=== PATIENT | female | born 1970 | race Caucasian/White ===

== ENCOUNTER 2021-09-18 12:07 | Outpatient (REF) | payer OTHER, SELFPAY ==
[2021-09-18 14:41] LABS: Anion Gap 12 (12-20); Blood Urea Nitrogen 5 mg/dL (9-16); Calcium 9.3 mg/dL (8.4-10.2); Carbon Dioxide 31 mmol/L (22-29); Chloride 101 mmol/L (96-108); Estimated Glomerular Filt Rate > 60; Glucose Random 62 mg/dL (60-115); Potassium 4.2 mmol/L (3.3-5.1); Sodium 140 mmol/L (135-145)
== END 2021-09-18 12:08 | disposition home or self-care (01) ==
LOC: HO.WFDLDS 12:07
PROVIDERS: Visit Provider Hospitalist
DX: I10 Essential (primary) hypertension (principal)
CPT/HCPCS: 36415; 80048

== ENCOUNTER → 2022-06-05 09:37 | Outpatient (BNVA) | payer OTHER, SELFPAY | PROVIDERS: Visit Provider Nurse Practitioner Psychiatric/Mental Health | DX: F11.20 Opioid dependence, uncomplicated (principal); F10.20 Alcohol dependence, uncomplicated; Z51.81 Encounter for therapeutic drug level monitoring; Z79.899 Other long term (current) drug therapy | CPT/HCPCS: 80305; 99212 ==

== ENCOUNTER → 2022-06-11 09:48 | Outpatient (BNVA) | payer OTHER, SELFPAY | PROVIDERS: Visit Provider Nurse Practitioner Psychiatric/Mental Health | DX: F10.20 Alcohol dependence, uncomplicated (principal); F11.20 Opioid dependence, uncomplicated | CPT/HCPCS: 80305; 99212 ==

== ENCOUNTER → 2022-06-23 09:40 | Outpatient (BNVA) | payer OTHER, SELFPAY | PROVIDERS: PCP Family Medicine; Visit Provider Nurse Practitioner Psychiatric/Mental Health | DX: F11.90 Opioid use, unspecified, uncomplicated (principal); F10.20 Alcohol dependence, uncomplicated; Z51.81 Encounter for therapeutic drug level monitoring | CPT/HCPCS: 80305; 99212 ==

== ENCOUNTER → 2022-07-08 09:42 | Outpatient (BNVA) | payer OTHER, SELFPAY | PROVIDERS: PCP Family Medicine; Visit Provider Nurse Practitioner Psychiatric/Mental Health | DX: F10.20 Alcohol dependence, uncomplicated (principal); F11.20 Opioid dependence, uncomplicated; Z51.81 Encounter for therapeutic drug level monitoring; Z79.899 Other long term (current) drug therapy | CPT/HCPCS: 80305; 99212 ==

== ENCOUNTER → 2022-07-22 10:15 | Outpatient (BNVA) | payer OTHER, SELFPAY | PROVIDERS: PCP Family Medicine; Visit Provider Nurse Practitioner Psychiatric/Mental Health | DX: F10.20 Alcohol dependence, uncomplicated (principal); F11.90 Opioid use, unspecified, uncomplicated | CPT/HCPCS: 99212 ==

== ENCOUNTER → 2022-08-18 10:11 | Outpatient (BNVA) | payer OTHER, SELFPAY | PROVIDERS: PCP Family Medicine; Visit Provider Nurse Practitioner Psychiatric/Mental Health | DX: F11.20 Opioid dependence, uncomplicated (principal); F10.20 Alcohol dependence, uncomplicated; Z51.81 Encounter for therapeutic drug level monitoring; Z79.899 Other long term (current) drug therapy | CPT/HCPCS: 80305; 99212 ==

== ENCOUNTER → 2022-09-01 10:09 | Outpatient (BNVA) | payer OTHER, SELFPAY | PROVIDERS: PCP Family Medicine; Visit Provider Nurse Practitioner Psychiatric/Mental Health | DX: Z51.81 Encounter for therapeutic drug level monitoring (principal); F10.20 Alcohol dependence, uncomplicated; F11.20 Opioid dependence, uncomplicated | CPT/HCPCS: 80305; 99212 ==

== ENCOUNTER → 2022-09-22 11:09 | Outpatient (BNVA) | payer OTHER, SELFPAY | PROVIDERS: PCP Family Medicine; Visit Provider Nurse Practitioner Psychiatric/Mental Health | DX: F11.20 Opioid dependence, uncomplicated (principal); F10.20 Alcohol dependence, uncomplicated; Z51.81 Encounter for therapeutic drug level monitoring; Z79.899 Other long term (current) drug therapy | CPT/HCPCS: 99212 ==

== ENCOUNTER → 2022-10-21 10:47 | Outpatient (BNVA) | payer OTHER, SELFPAY | PROVIDERS: PCP Family Medicine; Visit Provider Nurse Practitioner Psychiatric/Mental Health | DX: F11.20 Opioid dependence, uncomplicated (principal); F10.20 Alcohol dependence, uncomplicated | CPT/HCPCS: 99212 ==

== ENCOUNTER → 2022-11-11 10:52 | Outpatient (BNVA) | payer OTHER, SELFPAY | PROVIDERS: PCP Family Medicine; Visit Provider Nurse Practitioner Psychiatric/Mental Health | DX: Z51.81 Encounter for therapeutic drug level monitoring (principal); F10.20 Alcohol dependence, uncomplicated | CPT/HCPCS: 80305; 99212 ==

== ENCOUNTER 2022-12-14 13:28 | Emergency (ER) | payer OTHER, SELFPAY ==
[2022-12-14 13:34] VITALS: BP 153/97; PULSE 89; RESP 16; TEMP 36.6; O2SAT 96; BMI 26.5
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
[2022-12-14] MEDS: Amoxicillin/Potassium Clav 875 MG TABLET PO (14:24)
[2022-12-14] MEDS: Diphth,Pertus(ACell),Tet Adult 0.5 ML SYRINGE IM (14:24)
[2022-12-14 14:26] LABS: MANUAL DIFF FLAG NO
[2022-12-14 14:41] LABS: Alanine Aminotransferase 27 U/L (0-31); Albumin Level 4.1 g/dL (3.5-5.0); Alkaline Phosphatase 110 U/L (39-117); Aspartate Amino Transferase 55 U/L (5-31); Bilirubin Direct 0.4 mg/dL (0.0-0.5); Bilirubin Total 1.1 mg/dL (0.0-1.0); Lipase 28 U/L (8-78); Total Protein 6.6 g/dL (6.5-8.0)
[2022-12-14 14:45] LABS: Anion Gap 17 (12-20); Blood Urea Nitrogen 6 mg/dL (9-16); Calcium 9.3 mg/dL (8.4-10.2); Carbon Dioxide 29 mmol/L (22-29); Chloride 100 mmol/L (96-108); Creatinine Clr Calc Pharmacy 81.5; Estimated Glomerular Filt Rate > 60; Glucose Random 92 mg/dL (60-115); Potassium 4.7 mmol/L (3.3-5.1); Sodium 141 mmol/L (135-145)
[2022-12-14 14:48] LABS: HCG Quantitative < 2 mIU/mL
[2022-12-14 14:51] LABS: Basophils Absolute Auto 0.1 X10*3/uL (0.0-0.2); Eosinophils Absolute Auto 0.5 X10*3/uL (0.0-0.4); Eosinophils Percent Auto 6.8 % (0-4); Hematocrit 51.7 % (37.0-47.0); Hemoglobin 17.5 g/dl (12.0-16.0); Imm Gran Abs Auto 0.01 X10*3/uL (0.00-0.03); Imm Gran Pct Auto 0.1 % (0.0-0.4); Lymphocytes Absolute Auto 1.3 X10*3/uL (1.2-4.9); Lymphocytes Percent Auto 18.9 % (20-40); Mean Corpuscular HGB Conc 33.8 g/dl (31.0-35.0); Mean Corpuscular Hemoglobin 33.4 pg (27.0-33.0); Mean Corpuscular Volume 98.7 fL (80.0-98.0); Mean Platelet Volume 10.3 fL (9.4-12.3); Monocytes Absolute Auto 0.5 X10*3/uL (0.1-1.2); Monocytes Percent Auto 6.7 % (2-11); Neutrophils Absolute Auto 4.5 x10*3/uL (2.0-8.3); Neutrophils Percent Auto 66.5 % (45-73); Platelet Count 153 X10*3/uL (160-400); Red Blood Count 5.24 X10*6/uL (4.20-5.50); Red Cell Distribution Width 12.4 % (11.0-16.0); White Blood Count 6.7 X10*3/uL (4.8-10.8)
[2022-12-15 04:24] LABS: HBS Num1 12.94 mIU/mL (0-7.99); HBc Num1 0.09 S/CO (0.00-0.79); HBsAGNum1 0.23 S/CO (0.00-0.99); HIV AB/AG Nonreactive (Nonreactive); HIV Num 1 0.05 S/CO (0.00-0.99); Hepatitis B Core Antibody Nonreactive (Nonreactive); Hepatitis B Surface Antigen Negative (Negative); ~HepC Num1 14.52 S/CO (0.00-0.79); ~Hepatitis B Surface Antibody REACTIVE (Nonreactive); ~Hepatitis C Antibody Reactive (Nonreactive)
== END 2022-12-14 14:59 | disposition home or self-care (01) ==
PROVIDERS: Physician Assistant Medical; Emergency Provider Emergency Medicine Emergency Medical Services; PCP Family Medicine
DX: S51.852A Open bite of left forearm, initial encounter (principal); W50.3XXA Accidental bite by another person, initial encounter; Y93.9 Activity, unspecified; Y92.9 Unspecified place or not applicable; Y99.9 Unspecified external cause status; Z79.899 Other long term (current) drug therapy; Z23 Encounter for immunization
CPT/HCPCS: 36415; 80048; 80076; 83690; 84702; 85025; 86704; 86706; 86803; 87340; 87389; 90471; 90715; 99283

== ENCOUNTER → 2022-12-16 11:48 | Outpatient (BNVA) | payer OTHER, SELFPAY | PROVIDERS: PCP Family Medicine; Visit Provider Nurse Practitioner Psychiatric/Mental Health | DX: F11.20 Opioid dependence, uncomplicated (principal); F10.20 Alcohol dependence, uncomplicated | CPT/HCPCS: 80305; 99212 ==

== ENCOUNTER → 2023-01-21 13:39 | Outpatient (BNVA) | payer OTHER, SELFPAY | PROVIDERS: PCP Family Medicine; Visit Provider Nurse Practitioner Psychiatric/Mental Health | DX: F11.20 Opioid dependence, uncomplicated (principal) | CPT/HCPCS: 80305 ==

== ENCOUNTER → 2023-03-02 10:14 | Outpatient (BNVA) | payer OTHER, SELFPAY | PROVIDERS: PCP Family Medicine; Visit Provider Nurse Practitioner Psychiatric/Mental Health | DX: F10.20 Alcohol dependence, uncomplicated (principal); F11.90 Opioid use, unspecified, uncomplicated; Z51.81 Encounter for therapeutic drug level monitoring; Z79.899 Other long term (current) drug therapy | CPT/HCPCS: 80305; 99212 ==

== ENCOUNTER → 2023-03-20 11:02 | Outpatient (BNVA) | payer OTHER, SELFPAY | PROVIDERS: PCP Family Medicine; Visit Provider Nurse Practitioner Psychiatric/Mental Health | DX: Z51.81 Encounter for therapeutic drug level monitoring (principal); F11.20 Opioid dependence, uncomplicated; F10.20 Alcohol dependence, uncomplicated; Z79.899 Other long term (current) drug therapy | CPT/HCPCS: 99212 ==

== ENCOUNTER → 2023-04-02 10:28 | Outpatient (BNVA) | payer OTHER, SELFPAY | PROVIDERS: PCP Family Medicine; Visit Provider Nurse Practitioner Psychiatric/Mental Health | DX: F11.20 Opioid dependence, uncomplicated (principal); F10.20 Alcohol dependence, uncomplicated | CPT/HCPCS: 99212 ==

== ENCOUNTER → 2023-04-16 10:37 | Outpatient (BNVA) | payer OTHER, SELFPAY | PROVIDERS: PCP Family Medicine; Visit Provider Nurse Practitioner Psychiatric/Mental Health | DX: Z51.81 Encounter for therapeutic drug level monitoring (principal); F11.20 Opioid dependence, uncomplicated; F10.20 Alcohol dependence, uncomplicated | CPT/HCPCS: 99212 ==

== ENCOUNTER 2023-08-27 13:52 | Outpatient (AMB) | payer OTHER, SELFPAY ==
--- NOTE | 2023-08-27 14:04 | MHC.OFFVIS ---
Intake Vital Signs 08/27/23 14:05 BP 138/88 Blood Pressure Location Rt brachial Position Sitting Respiration 18 Pulse 78 Pulse Source Pulse Oximeter Pulse Oximetry (%) 97 Oxygen Delivery Method Room Air Intake Visit Reasons: MAT visit Intake Note: Walk in pt presented for MAT visit. [employer] Required: No Allergies No Known Allergies Allergy (Verified 09/18/21 12:08) Medication List - Last Reconciled 08/27/23 by Jordyn Torres NP aspirin (Adult Low Dose Aspirin) 81 mg PO DAILY buprenorphine-naloxone 4-1 mg (Suboxone) 1 film sublingual DAILY docusate sodium 100 mg PO DAILY PRN folic acid 1 mg PO DAILY hydroxyzine HCl 50 mg (2 x 25 mg) PO BID PRN lisinopril 10 mg PO DAILY naloxone 4 mg/actuation (Narcan) 4 mg intranasal Q2M PRN thiamine HCl (vitamin B1) 100 mg PO DAILY Is last menstrual period known: No Post menopausal: No Patient : No Do you need a note to return to daycare/school/sports/work: No HPI MAT visit HPI Details Pt presents to reestablish care, has not been seen since April. Says she has a hard time reaching out for help, and that is why she does not have providers yet. States she has not used illicit substances in over a year. Drinks 5-6 nips daily in the evening, reports she drinks them to sleep, and that her sleep is poor. Has been buying suboxone strips from a friend, and would like to restart at her previous dose. Would like to stop drinking every night. Says she has tried trazodone and this has not been helpful for her. She is between PCP right now due to insurance issues and has been without her meds for 2 months. States she has been taking her 's lisinopril at the same dose she was prescribe by previous PCP. Monitors her blood pressures at home. Review of Systems Const Reports as per HPI and Reports difficulty sleeping Physical Exam Vital Signs: Last Vital Signs Pulse 78 08/27/23 14:05 Resp 18 08/27/23 14:05 BP 138/88 08/27/23 14:05 Pulse Ox 97 08/27/23 14:05 Oxygen Delivery Method Room Air 08/27/23 14:05 Const General: no acute distress, alert and awake Nutritional Appearance: thin Orientation/consciousness: patient oriented x3 Resp Effort & Inspection: normal respiratory effort Neuro General: patient oriented x3 Psych Appearance: grossly normal Assessment & Plan Assessment & Plan (1) Opioid use disorder: Code(s): F11.90 - Opioid use, unspecified, uncomplicated Plan Restart suboxone at previous dose. Lisinopril restarted at her previous dose as pt is looking for new PCP that accepts her insurance. Educated to continue to self-monitor blood pressures at home. Risk reduction discussed. Sleep hygiene discussed. Follow up in 2 weeks. Plan reviewed with JESUS Armijo Medications: New lisinopril 10 mg PO DAILY 30 tabs 2RF Refilled folic acid 1 mg PO DAILY 90 tabs 3RF buprenorphine-naloxone 4-1 mg (Suboxone) 1 film sublingual DAILY 14 ea 0RF thiamine HCl (vitamin B1) 100 mg PO DAILY 30 tabs 3RF Coding Level of Care Code Est Pt Level 4 (05180) Diagnoses Opioid use disorder F11.90
[2023-08-27 14:05] VITALS: BP 138/88; PULSE 78; RESP 18; O2SAT 97
--- NOTE | 2023-08-27 14:10 | AM.OFFVISNUR ---
Intake Vital Signs 08/27/23 14:05 BP 138/88 Blood Pressure Location Rt brachial Position Sitting Respiration 18 Pulse 78 Pulse Source Pulse Oximeter Pulse Oximetry (%) 97 Oxygen Delivery Method Room Air Intake Visit Reasons: MAT Visit Allergies No Known Allergies Allergy (Verified 09/18/21 12:08) Medication List - Last Reconciled 08/27/23 by Jordyn Torres NP aspirin (Adult Low Dose Aspirin) 81 mg PO DAILY buprenorphine-naloxone 4-1 mg (Suboxone) 1 film sublingual DAILY docusate sodium 100 mg PO DAILY PRN folic acid 1 mg PO DAILY hydroxyzine HCl 50 mg (2 x 25 mg) PO BID PRN lisinopril 10 mg PO DAILY naloxone 4 mg/actuation (Narcan) 4 mg intranasal Q2M PRN thiamine HCl (vitamin B1) 100 mg PO DAILY Coding
== END 2023-08-27 14:57 | disposition home or self-care (01) ==
PROVIDERS: PCP Family Medicine; Visit Provider Nurse Practitioner Psychiatric/Mental Health
DX: F11.90 Opioid use, unspecified, uncomplicated (principal)
CPT/HCPCS: 99214

== ENCOUNTER → 2023-08-27 13:52 | Outpatient (BNVA) | payer OTHER, SELFPAY | PROVIDERS: PCP Family Medicine; Visit Provider Nurse Practitioner Psychiatric/Mental Health | DX: F11.20 Opioid dependence, uncomplicated (principal) | CPT/HCPCS: 99212 ==

== ENCOUNTER 2023-09-17 11:06 | Outpatient (AMB) | payer OTHER, SELFPAY ==
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
[2023-09-17 12:31] VITALS: BP 138/86; PULSE 92; O2SAT 93
== END 2023-09-17 11:58 | disposition home or self-care (01) ==
PROVIDERS: PCP Family Medicine; Visit Provider Nurse Practitioner Psychiatric/Mental Health
DX: F11.90 Opioid use, unspecified, uncomplicated (principal); K29.70 Gastritis, unspecified, without bleeding
CPT/HCPCS: 99214

== ENCOUNTER → 2023-09-17 11:06 | Outpatient (BNVA) | payer OTHER, SELFPAY | PROVIDERS: PCP Family Medicine; Visit Provider Nurse Practitioner Psychiatric/Mental Health | DX: F11.20 Opioid dependence, uncomplicated (principal); K29.70 Gastritis, unspecified, without bleeding | CPT/HCPCS: 99212 ==

== ENCOUNTER 2023-10-08 09:34 | Emergency (ER) | payer OTHER, SELFPAY ==
[2023-10-08 09:58] VITALS: BP 128/83; PULSE 95; RESP 20; TEMP 36.4; O2SAT 94; BMI 25.6
[2023-10-08 10:39] LABS: MANUAL DIFF FLAG NO
[2023-10-08 10:43] LABS: Basophils Absolute Auto 0.2 X10*3/uL (0.0-0.2); Eosinophils Absolute Auto 0.4 X10*3/uL (0.0-0.4); Eosinophils Percent Auto 5.4 % (0-4); Hematocrit 46.9 % (37.0-47.0); Imm Gran Abs Auto 0.02 X10*3/uL (0.00-0.03); Imm Gran Pct Auto 0.3 % (0.0-0.4); Lymphocytes Absolute Auto 1.4 X10*3/uL (1.2-4.9); Lymphocytes Percent Auto 17.4 % (20-40); Mean Corpuscular HGB Conc 34.1 g/dl (31.0-35.0); Mean Corpuscular Hemoglobin 33.3 pg (27.0-33.0); Mean Corpuscular Volume 97.5 fL (80.0-98.0); Mean Platelet Volume 9.9 fL (9.4-12.3); Monocytes Absolute Auto 0.7 X10*3/uL (0.1-1.2); Monocytes Percent Auto 8.5 % (2-11); Neutrophils Absolute Auto 5.3 x10*3/uL (2.0-8.3); Neutrophils Percent Auto 66.4 % (45-73); Platelet Count 169 X10*3/uL (160-400); Red Blood Count 4.81 X10*6/uL (4.20-5.50); Red Cell Distribution Width 12.1 % (11.0-16.0)
[2023-10-08 10:56] LABS: Alanine Aminotransferase 35 U/L (0-31); Albumin Level 3.9 g/dL (3.5-5.0); Alkaline Phosphatase 100 U/L (39-117); Anion Gap 12 (12-20); Aspartate Amino Transferase 76 U/L (5-31); Bilirubin Direct 0.8 mg/dL (0.0-0.5); Bilirubin Total 1.3 mg/dL (0.0-1.0); Blood Urea Nitrogen 6 mg/dL (9-16); Calcium 9.4 mg/dL (8.4-10.2); Carbon Dioxide 32 mmol/L (22-29); Chloride 101 mmol/L (96-108); Creatinine Clr Calc Pharmacy 81.6; Estimated Glomerular Filt Rate > 60; Glucose Random 99 mg/dL (60-115); Lipase 11 U/L (8-78); Potassium 3.8 mmol/L (3.3-5.1); Sodium 141 mmol/L (135-145); Total Protein 6.8 g/dL (6.5-8.0)
--- NOTE | 2023-10-08 13:05 | ED_ITS ---
HPI - Abdominal Pain General Chief Complaint: Abdominal Pain Stated Complaint: Abd pain Related Data Previous Rx's Medication Instructions Recorded aspirin 81 mg tablet,delayed 81 mg PO DAILY #30 tabs 09/18/21 release (Adult Low Dose Aspirin) naloxone 4 mg/actuation nasal 4 mg intranasal Q2M PRN opioid 06/05/22 spray (Narcan) overdose #2 ea docusate sodium 100 mg capsule 100 mg PO DAILY PRN constipation 10/16/22 #30 caps hydroxyzine HCl 25 mg tablet 50 mg (2 x 25 mg) PO BID PRN 03/20/23 anxiety #60 tabs folic acid 1 mg tablet 1 mg PO DAILY #90 tabs 08/27/23 lisinopril 10 mg tablet 10 mg PO DAILY #30 tabs 08/27/23 thiamine HCl (vitamin B1) 100 mg 100 mg PO DAILY #30 tabs 08/27/23 tablet ondansetron 4 mg disintegrating 4 mg PO Q8H PRN nausea and 09/17/23 tablet vomiting 7 days #21 tabs sucralfate 100 mg/mL oral 10 ml PO QIDACHS 7 days #1,000 mL 09/17/23 suspension buprenorphine 4 mg-naloxone 1 mg 1 film sublingual DAILY #14 ea 10/08/23 sublingual film (Suboxone) Allergies Allergy/AdvReac Type Severity Reaction Status Date / Time No Known Allergies Allergy Verified 09/18/21 12:08 Physical Exam ED Vital Signs: Vital Signs - 24 hr 10/08/23 09:58 Temperature 97.5 F Pulse Rate 95 Respiratory Rate 20 Blood Pressure 128/83 Pulse Oximetry 94 Oxygen Delivery Method Room Air BMI result Body Mass Index 25.6 Course Course Course Narrative: This is an RME: Additional HPI, ROS, PE not included below will be deferred to primary provider. This is a 53-year-old female, the history of hypertension, presenting to the emergency department with complaints abdominal pain. She states that she drinks 6-8 shots per day. At reports that she vomited today. Last drink was this morning. Patient reporting that she does not want to stay in the emergency room for further imaging as she feels like she is going through opiate withdrawal and she has an appointment. Discussed with her that she should stay however patient would like to leave. Plan: Labs, UA, further ER evaluation needed Medical Decision Making Lab Data 10/08/23 10:36 10/08/23 10:36 Labs: Lab Results 10/08/23 Range/Units 10:36 WBC 8.0 (4.8-10.8) X10*3/uL RBC 4.81 (4.20-5.50) X10*6/uL Hgb 16.0 (12.0-16.0) g/dl Hct 46.9 (37.0-47.0) % MCV 97.5 (80.0-98.0) fL MCH 33.3 H (27.0-33.0) pg MCHC 34.1 (31.0-35.0) g/dl RDW 12.1 (11.0-16.0) % Plt Count 169 (160-400) X10*3/uL MPV 9.9 (9.4-12.3) fL Immature Gran % (Auto) 0.3 (0.0-0.4) % Neut % (Auto) 66.4 (45-73) % Lymph % (Auto) 17.4 L (20-40) % [place] % (Auto) 8.5 (2-11) % Eos % (Auto) 5.4 H (0-4) % Baso % (Auto) 2.0 (0-2) % Lymph # (Auto) 1.4 (1.2-4.9) X10*3/uL [place] # (Auto) 0.7 (0.1-1.2) X10*3/uL Eos # (Auto) 0.4 (0.0-0.4) X10*3/uL Baso # (Auto) 0.2 (0.0-0.2) X10*3/uL Abs Immat Gran (auto) 0.02 (0.00-0.03) X10*3/uL Absolute Neuts (auto) 5.3 (2.0-8.3) x10*3/uL Absolute Nucleated RBC 0.000 (0.0-0.012) X10*3/uL Nucleated RBC % (auto) 0.0 (0.0-0.2) /100WBC Sodium 141 (135-145) mmol/L Potassium 3.8 (3.3-5.1) mmol/L Chloride 101 (96-108) mmol/L Carbon Dioxide 32 H (22-29) mmol/L Anion Gap 12 (12-20) BUN 6 L (9-16) mg/dL Creatinine 0.69 (0.5-1.4) mg/dL Estim Creat Clear Calc 81.6 Estimated GFR > 60 Random Glucose 99 (60-115) mg/dL Calcium 9.4 (8.4-10.2) mg/dL Total Bilirubin 1.3 H (0.0-1.0) mg/dL Direct Bilirubin 0.8 H (0.0-0.5) mg/dL AST 76 H (5-31) U/L ALT 35 H (0-31) U/L Alkaline Phosphatase 100 (39-117) U/L Total Protein 6.8 (6.5-8.0) g/dL Albumin 3.9 (3.5-5.0) g/dL Lipase 11 (8-78) U/L Beta HCG, Quant < 2 mIU/mL Discharge Plan Discharge Clinical Impression: Abdominal pain Patient Disposition: Left W/O Completing Treatment Prescriptions: No Action docusate sodium 100 mg capsule 100 mg PO DAILY PRN (Reason: constipation) Qty: 30 3RF aspirin [Adult Low Dose Aspirin] 81 mg tablet,delayed release (DR/EC) 81 mg PO DAILY Qty: 30 0RF naloxone [Narcan] 4 mg/actuation spray,non-aerosol 4 mg intranasal Q2M PRN (Reason: opioid overdose) Qty: 2 0RF Rx Instructions: spray 1 dose into ONE nostril; alternate nostrils w each dose until help arrives buprenorphine-naloxone [Suboxone] 4-1 mg film 1 film sublingual DAILY Qty: 14 0RF hydroxyzine HCl 25 mg tablet 50 mg PO BID PRN (Reason: anxiety) Qty: 60 1RF folic acid 1 mg tablet 1 mg PO DAILY Qty: 90 3RF thiamine HCl (vitamin B1) 100 mg tablet 100 mg PO DAILY Qty: 30 3RF lisinopril 10 mg tablet 10 mg PO DAILY Qty: 30 2RF sucralfate 100 mg/mL suspension 10 ml PO QIDACHS 7 Days Qty: 1000 0RF ondansetron 4 mg tablet,disintegrating 4 mg PO Q8H PRN (Reason: nausea and vomiting) 7 Days Qty: 21 0RF Discharge Date/Time: 10/08/23 14:42
[2023-10-08 13:32] LABS: HCG Quantitative < 2 mIU/mL
== END 2023-10-08 14:42 | disposition left against medical advice (07) ==
PROVIDERS: Physician Assistant Medical; Emergency Provider Emergency Medicine
DX: R10.9 Unspecified abdominal pain (principal); Z53.21 Procedure and treatment not carried out due to patient leaving prior to being seen by health care provider; I10 Essential (primary) hypertension; F11.20 Opioid dependence, uncomplicated; F10.20 Alcohol dependence, uncomplicated; Y90.9 Presence of alcohol in blood, level not specified; Z79.82 Long term (current) use of aspirin; Z79.899 Other long term (current) drug therapy
CPT/HCPCS: 36415; 80048; 80076; 83690; 84702; 85025; 99281; 99283

== ENCOUNTER 2023-11-03 11:26 | Outpatient (AMB) | payer OTHER, SELFPAY ==
[2023-11-03 11:15] VITALS: BP 110/60; PULSE 115; RESP 22; O2SAT 98
--- NOTE | 2023-11-03 11:40 | A.OFFVISCC_ITS ---
Intake Vital Signs 11/03/23 11:15 BP 110/60 Blood Pressure Location Lt brachial Position Sitting Respiration 22 H Pulse 115 H Pulse Source Pulse Oximeter Pulse Oximetry (%) 98 Oxygen Delivery Method Room Air Intake Visit Reasons: MAT Visit Allergies No Known Allergies Allergy (Verified 09/18/21 12:08) Medication List - Last Reconciled 11/03/23 by Kathy Watkins CNP buprenorphine-naloxone 4-1 mg 1 film buccal BID docusate sodium 100 mg PO DAILY PRN folic acid 1 mg PO DAILY lisinopril 10 mg PO DAILY naloxone 4 mg/actuation (Narcan) 4 mg intranasal Q2M PRN sertraline 50 mg PO DAILY thiamine HCl (vitamin B1) 100 mg PO DAILY HPI MAT Visit HPI Details Patient presents for follow up Bright affect, happy to share that she has not had any alcohol in 3 weeks. [place] treatment program was helpful.Has been attending a [facility] group Patient requesting information regarding hepatitis c labs. Reporting she was treated successfully, however concerned that recent labwork showed Hepatitis C antibody. hep c labs treated. Patient requesting viral load labs be drawn. Physical Exam (takes in the evening) and feels this way in the mornings. She reports sleep has improved overall. Const Physical Exam Vital Signs: Last Vital Signs Pulse 115 H 11/03/23 11:15 Resp 22 H 11/03/23 11:15 BP 110/60 11/03/23 11:15
--- NOTE | 2023-11-03 11:40 | MHC.AM.SUB ---
Intake Vital Signs 11/03/23 11:15 BP 110/60 Blood Pressure Location Lt brachial Position Sitting Respiration 22 H Pulse 115 H Pulse Source Pulse Oximeter Pulse Oximetry (%) 98 Oxygen Delivery Method Room Air Intake Visit Reasons: MAT Visit Allergies No Known Allergies Allergy (Verified 09/18/21 12:08) Medication List - Last Reconciled 11/03/23 by Kathy Watkins CNP buprenorphine-naloxone 4-1 mg 1 film buccal BID docusate sodium 100 mg PO DAILY PRN folic acid 1 mg PO DAILY lisinopril 10 mg PO DAILY naloxone 4 mg/actuation (Narcan) 4 mg intranasal Q2M PRN sertraline 50 mg PO DAILY thiamine HCl (vitamin B1) 100 mg PO DAILY HPI MAT Visit HPI Details Patient presents for follow up Bright affect, happy to share that she has not had any alcohol in 3 weeks. [facility] treatment program was helpful.Has been attending a [employer] group Patient requesting information regarding hepatitis c labs. Reporting she was treated successfully, however concerned that recent labwork showed Hepatitis C antibody. This senior technical writer assured patient that this in expected in someone who has been treated. Patient requesting viral load labs be drawn. Recently started Sertraline 25mg, with goal to increase dose to 50mg daily. She reports she has been taking 25mg daily. Feels groggy with current dose (takes in the evening) and feels this way in the mornings. Does not wish to increase dose at this time. She reports sleep has improved overall. Review of Systems Const Reports as per HPI and Reports no additional complaints Physical Exam Vital Signs: Last Vital Signs Pulse 115 H 11/03/23 11:15 Resp 22 H 11/03/23 11:15 BP 110/60 11/03/23 11:15 Pulse Ox 98 11/03/23 11:15 Oxygen Delivery Method Room Air 11/03/23 11:15 Const General: cooperative and healthy appearing Nutritional Appearance: average body habitus Orientation/consciousness: patient oriented x3 Limitations: no limitations Neuro General: patient oriented x3 Psych Appearance: well kempt Speech and movement: Clear speech present Affect: normal affect Attitude: cooperative Thought process: Normal thought process present Thought content: Normal thought content present Insight: Fair insight present (Psych) Judgement: Good judgement present (Psych) Assessment & Plan Assessment & Plan (1) Opioid use disorder: Code(s): F11.90 - Opioid use, unspecified, uncomplicated Plan: continue suboxone at current dose (4mg BID) will order Hep C labs (2) Alcohol use disorder, moderate, dependence: Code(s): F10.20 - Alcohol dependence, uncomplicated Plan: relapse prevention discussion continue vitamins follow up 2 weeks Medications: Changed From buprenorphine-naloxone 4-[address] 1 strip/tab under (each) side of tongue 1 film buccal BID 14 ea 0RF To buprenorphine-naloxone 4-1 mg 1 film buccal BID 28 ea 0RF Refilled docusate sodium 100 mg PO DAILY PRN 30 caps 3RF constipation Coding Level of Care Code Est Pt Level 3 (78032) Diagnoses Opioid use disorder F11.90 Alcohol use disorder, moderate, dependence F10.20
== END 2023-11-03 13:08 | disposition home or self-care (01) ==
PROVIDERS: Visit Provider Nurse Practitioner Psychiatric/Mental Health
DX: F11.90 Opioid use, unspecified, uncomplicated (principal); F10.20 Alcohol dependence, uncomplicated
CPT/HCPCS: 99213

== ENCOUNTER → 2023-11-03 11:26 | Outpatient (BNVA) | payer OTHER, SELFPAY | PROVIDERS: Visit Provider Nurse Practitioner Psychiatric/Mental Health | DX: F11.20 Opioid dependence, uncomplicated (principal) | CPT/HCPCS: 99212 ==

== ENCOUNTER 2024-12-05 11:06 | Emergency (ER) | payer OTHER, SELFPAY ==
--- OUTSIDE RECORDS SUMMARY | 2024-12-05 13:26 | XMS_ITS | Clinical Summary ---
Author Organization [employer] Address [address] [place] [address] Care Team Providers [employer] Employee Name Role Phone Unavailable Primary Care Provider Unavailabl e Social History Tobacco Use Types Packs/Day Years Used Date Smoking Tobacco: Never Assessed Comments Unknown Sex and Gender Information Value Date Recorded Sex Assigned at Not on file Legal Sex Female 10:40 AM EDT Gender Identity Not on file Sexual Orientation Not on file Plan of Treatment Health Maintenance Due Date Last Done Comments CT Colonography 1969 Colonoscopy 1969 Colorectal Cancer Screening 1969 Depression Screening 1969 FIT DNA/Cologuard 1969 FIT 1969 FOBT 1969 Sigmoidoscopy 1969 Alcohol/Substance Use Screening 1981 Tobacco Screening 1981 DTaP/Tdap/Td Vaccines (1 - Tdap) 1988 Hepatitis B Vaccines (1 of 3 - 19+ 3-dose series) 1988 Pap Smear 1990 Cervical Cancer Screening 1999 HPV/Cotest 1999 Mammogram 2009 Pneumococcal Vaccine: 50+ Ye ars (1 of 1 - PCV) 2019 Zoster Vaccines (1 of 2) 2019 COVID-19 Vaccine (2023-2 5 season) 2024 Influenza Vaccine (#1) 2024 RSV Patients and Pa tients Aged 60 years or older (1 - 1-dose 75+ series) 2044 HIB Vaccines Aged Out No longer eligi ble based on patient's age to complete this topic HPV Vaccines Aged Out No longer eligi ble based on patient's age to complete this topic Hepatitis A Vaccines Aged Out No long er eligible based on patient's age to complete this topic IPV Vaccines Aged Out No longer eligi ble based on patient's age to complete this topic Meningococcal Vaccine Aged Out No andrez marilu eligible based on patient's age to complete this topic Pneumococcal Vaccine: Pediat rics (0 to 5 Years) and At-Risk Patients (6 to 49) Years) Aged Out No longer eligible b ased on patient's age to complete this topic RSV under 20 months Aged Out No longe r eligible based on patient's age to complete this topic Rotavirus Vaccines Aged Out No longer eligible based on patient's age to complete this topic
== END 2024-12-05 13:07 | disposition left against medical advice (07) ==
PROVIDERS: Emergency Provider Emergency Medicine
DX: M25.512 Pain in left shoulder (principal)

== ENCOUNTER 2025-02-01 02:05 | Emergency (ER) | payer OTHER, SELFPAY ==
--- NOTE | ~2025-02-01 | XR_ITS ---
CLINICAL HISTORY: rib pain post fall 4 view, chest and left ribs Comparison: None Findings: Acute nondisplaced left lateral 8th and 9th rib fractures. Minimal atelectasis. No consolidation, pneumothorax, or pleural effusion. Calcifications involve the tortuous aorta. Heart size is at the upper limits of normal. IMPRESSION: 1. Acute nondisplaced left lateral 8th and 9th rib fractures. 2. No pneumothorax. This document has been electronically signed by: Álvaro Grant MD on 02/01/2025 03:01:58
[2025-02-01 02:07] VITALS: BP 123/72; PULSE 87; RESP 18; TEMP 36.3; O2SAT 97; BMI 24.7
--- NOTE | 2025-02-01 03:22 | ED_ITS ---
HPI - Fall General Chief Complaint: Fall Stated Complaint: Fall Time Seen by Provider: 02/01/25 03:22 Source: patient Mode of arrival: ambulatory Limitations: no limitations History of Present Illness ED Provider: HPI Narrative: Apparently patient was walking tripped on the curb side fell landed on her left ribs earlier comes here with pain in the lower ribs increases on palpation and deep breaths no other injury Related Data Previous Rx's ?Medication ?Instructions ?Recorded naloxone 4 mg/actuation nasal 4 mg intranasal Q2M PRN opioid 06/05/22 spray (Narcan) overdose #2 ea folic acid 1 mg tablet 1 mg PO DAILY #90 tabs 08/27/23 thiamine HCl (vitamin B1) 100 mg 100 mg PO DAILY #30 tabs 08/27/23 tablet sertraline 50 mg tablet 50 mg PO DAILY #30 tabs 10/22/23 docusate sodium 100 mg capsule 100 mg PO DAILY PRN constipation 11/03/23 #30 caps lisinopril 10 mg tablet 10 mg PO DAILY #30 tabs 01/07/24 buprenorphine 4 mg-naloxone 1 mg 1 film buccal DAILY #5 ea 01/13/25 sublingual film ibuprofen 600 mg tablet 600 mg PO Q6H PRN fever or pain 02/01/25 #30 tabs Allergies Allergy/AdvReac Type Severity Reaction Status Date / Time No Known Allergies Allergy Verified 02/01/25 02:09 Review of Systems Review of Systems: Yes all other systems are reviewed and are negative [facility] Social History Social History Advance Directives: No Advance Directives Information Provided: Yes Do you have a plan to hurt others: No Plan Physical Exam Vital Signs: Vital Signs: Last Vital Signs Temp 97.3 F 02/01/25 02:07 Pulse 87 02/01/25 02:07 Resp 18 02/01/25 02:07 BP 123/72 02/01/25 02:07 Pulse Ox 97 02/01/25 02:07 O2 Del Method Room Air 02/01/25 02:07 BMI result Body Mass Index 24.7 Appearance: Alert. Oriented X3. No acute distress. Eyes: PERRLA, No Nystagmus HEENT: Pharynx normal. Oral Mucosa moist atraumatic normocephalic Neck: Normal inspection. Neck supple. CVS: Normal heart rate and rhythm. Pulses normal. Respiratory: No respiratory distress. Equal air entry bilateral, no wheezing/rales/rhonchi tenderness left lower ribs in mid axillary area Abdomen: Soft and nontender. Bowel sounds are present, no mass palpable, no CVA tenderness Skin: Skin warm and dry. Normal skin color. Normal skin turgor. Extremities: No lower extremity edema. No calf tenderness Neuro: Oriented X 3. No motor deficit. No sensory deficit.No cerebellar signs , cranial nerves II-XII intact Procedures FAST Exam FAST Exam 1: Fluid in Morison's pouch: No Fluid in Splenorenal Junction: No Fluid around bladder, Transverse view: No Fluid around bladder, Sagittal view: No Fluid in Pericardial Sac: No Gross Wall Motion Abnormality: No Study normal for this patient: No Images saved for further review: No Additional Comments: Negative fast test Medical Decision Making Medical Decision Making MDM Narrative: Patient with left 8th and 9th rib fracture without displacement bedside ultrasound was done spleen is intact no effusion in the chest x-ray will discharge patient home on pain medication Independent Interpretation I performed an independent interpretation of an: Plain X-Ray Radiology Impression Discussion of test interpretation with radiology: I have reviewed the radiologist's reading. Radiologist Impression: 1. Acute nondisplaced left lateral 8th and 9th rib fractures. 2. No pneumothorax. This document has been electronically signed by: Álvaro Grant MD on 02/01/2025 03:01:58 Discharge Plan Discharge Clinical Impression: Left rib fracture Patient Disposition: Home, Self-Care Instructions: Rib Fracture (ED) Additional Instructions: You have left 8th and 9th rib fracture which has not been displaced Take pain medication as prescribed Report to the ER if increased pain/shortness a breath any time Prescriptions: New ibuprofen 600 mg tablet 600 mg PO Q6H PRN (Reason: fever or pain) Qty: 30 0RF No Action sertraline 50 mg tablet 50 mg PO DAILY Qty: 30 0RF Rx Instructions: Take 1/2 tab x 1 weeks, then progress to full tab daily lisinopril 10 mg tablet 10 mg PO DAILY Qty: 30 2RF buprenorphine-naloxone 4-1 mg film 1 film buccal DAILY Qty: 5 0RF naloxone [Narcan] 4 mg/actuation spray,non-aerosol 4 mg intranasal Q2M PRN (Reason: opioid overdose) Qty: 2 0RF Rx Instructions: spray 1 dose into ONE nostril; alternate nostrils w each dose until help arrives docusate sodium 100 mg capsule 100 mg PO DAILY PRN (Reason: constipation) Qty: 30 3RF folic acid 1 mg tablet 1 mg PO DAILY Qty: 90 3RF thiamine HCl (vitamin B1) 100 mg tablet 100 mg PO DAILY Qty: 30 3RF Stand Alone Forms: Work/School Release Print Language: [place]
[2025-02-01] MEDS: Ketorolac Tromethamine 60 MG/2 ML VIAL IM (04:02)
[2025-02-01 04:03] VITALS: BP 123/72; PULSE 87; RESP 18; TEMP 36.3; O2SAT 97
== END 2025-02-01 04:05 | disposition home or self-care (01) ==
PROVIDERS: Emergency Provider Internal Medicine
DX: S22.32XA Fracture of one rib, left side, initial encounter for closed fracture (principal); R07.81 Pleurodynia; W01.0XXA Fall on same level from slipping, tripping and stumbling without subsequent striking against object, initial encounter; Y93.9 Activity, unspecified; Y92.9 Unspecified place or not applicable; Y99.8 Other external cause status
CPT/HCPCS: 71101; 96372; 99283; 99284; J1885

== ENCOUNTER → 2025-02-01 02:28 | Outpatient (BNV) | payer OTHER, SELFPAY | PROVIDERS: Emergency Provider Internal Medicine; Visit Provider Radiology Neuroradiology | DX: S22.42XA Multiple fractures of ribs, left side, initial encounter for closed fracture (principal) | CPT/HCPCS: 71101 ==

== ENCOUNTER → 2025-02-06 16:03 | Outpatient (BNVA) | payer OTHER, SELFPAY | PROVIDERS: Visit Provider Internal Medicine | DX: F10.20 Alcohol dependence, uncomplicated (principal); F11.90 Opioid use, unspecified, uncomplicated; Z51.81 Encounter for therapeutic drug level monitoring | CPT/HCPCS: 80307; 99212 ==

== ENCOUNTER → 2025-02-06 16:03 | Outpatient (AMB) | payer OTHER, SELFPAY ==
--- NOTE | 2025-02-06 16:27 | MHC.OFFVIS ---
Vital Signs 02/06/25 16:33 Height 5 ft 2 in Weight 131 lb BMI 24.0 Pulse 102 H Pulse Source Pulse Oximeter Pulse Oximetry (%) 95 Oxygen Delivery Method Room Air Intake Visit Reasons: mat visit Allergies No Known Allergies Allergy (Verified 02/06/25 16:34) HPI HPI mat visit: Details: She injured her ribs and did go to work and now has discomfort left rib area. She has been on 8 /2 daily and now decreased to 4/1 and has some need for increased dose with jitteriness. She has had treated Hepatititis C in past. Review of Systems Const All systems reviewed & are unremarkable except as noted in HPI and below Physical Exam Vital Signs: Last Vital Signs Pulse 102 H 02/06/25 16:33 Pulse Ox 95 02/06/25 16:33 Oxygen Delivery Method Room Air 02/06/25 16:33 BMI result Body Mass Index 24.0 Results AMB 14 Panel Urine Drug Screen Urine Marijuana (THC) Negative Last Edit by Hillary Weldon CMA on 02/06/25 16:53 Urine Cocaine Negative Last Edit by Hillary Weldon CMA on 02/06/25 16:53 Urine Morphine Negative Last Edit by Hillary Weldon CMA on 02/06/25 16:53 Urine Methamphetamine Negative Last Edit by Hillary Weldon CMA on 02/06/25 16:53 Urine Amphetamine Negative Last Edit by Hillary Weldon CMA on 02/06/25 16:53 Urine Benzodiazepine Negative Last Edit by Hillary Weldon CMA on 02/06/25 16:53 Urine Barbiturates Negative Last Edit by Hillary Weldon CMA on 02/06/25 16:53 Urine Methadone Negative Last Edit by Hillary Weldon CMA on 02/06/25 16:53 Urine Buprenorphine Positive Last Edit by Hillary Weldon CMA on 02/06/25 16:53 Urine Buprenorphine previously reported as Negative Hillary Weldon 02/06/25 16:53 Urine Tricyclic Antidepressant Negative Last Edit by Hillary Weldon CMA on 02/06/25 16:53 Urine MDMA Negative Last Edit by Hillary Weldon CMA on 02/06/25 16:53 Urine Oxycodone Negative Last Edit by Hillary Weldon CMA on 02/06/25 16:53 Urine Phencyclidine Negative Last Edit by Hillary Weldon CMA on 02/06/25 16:53 Urine Propoxyphene Negative Last Edit by Hillary Weldon CMA on 02/06/25 16:53 Results Reviewed Results Reviewed: Laboratory Last Values POC Urine Buprenorphine Positive 02/06/25 16:34 POC Urine Morphine Negative 02/06/25 16:34 POC Urine Oxycodone Negative 02/06/25 16:34 POC Urine Methadone Negative 02/06/25 16:34 POC Urine Propoxyphene Negative 02/06/25 16:34 POC Urine Barbiturates Negative 02/06/25 16:34 POC U Tricyclic Antidpr Negative 02/06/25 16:34 POC Urine PCP Negative 02/06/25 16:34 POC Ur Amphetamines Negative 02/06/25 16:34 POC Ur Methamphetamine Negative 02/06/25 16:34 POC Urine MDMA Negative 02/06/25 16:34 POC Ur Benzodiazepine Negative 02/06/25 16:34 POC Urine Cocaine Negative 02/06/25 16:34 POC Ur Marijuana (THC) Negative 02/06/25 16:34 Assessment & Plan Assessment & Plan (1) Alcohol use disorder, moderate, dependence: Comment: She took some gabapentin for rib pain but denies using alcohol Code(s): F10.20 - Alcohol dependence, uncomplicated Category: Medical Plan: Would give 8/2 one SL daily,30 with no refills. Check Hepatitis C viral load. See in one month, (2) Opioid use disorder: Code(s): F11.90 - Opioid use, unspecified, uncomplicated Category: Medical Plan: n/a Orders: Orders AMB 14 Panel Urine Drug Screen Today Z51.81 - Encounter for therapeutic drug level monitoring Medications: New buprenorphine-naloxone 8-2 mg (Suboxone) 1 film sublingual DAILY 30 ea 0RF 30 days Coding Level of Care Code Est Pt Level 3 (47331) Diagnoses Alcohol use disorder, moderate, dependence F10.20 Opioid use disorder F11.90
[2025-02-06 16:33] VITALS: PULSE 102; O2SAT 95; BMI 24.0
--- OUTSIDE RECORDS SUMMARY | 2025-02-06 18:36 | XMS_ITS | Data Portability ---
Author Organization [facility] [address] Address [address] [place] [address] Assessment No assessment recorded. Plan of Treatment Reminders Order Date Submit Date Provider Last Modified By Organization Details Last Modified Time Details Appointments None recorded. Lab None recorded. Referral None recorded. Procedures None recorded. Surgeries None recorded. Imaging None recorded. Medication Orders Aplisol 5 tub. unit/0.1 mL intradermal injection solution [address] [facility] kadeem [facility]/Pharmacy #[id number], [address] [place], [address], 4 12:22:38 Patient TargetsNo targets recorded. Patient InstructionsNo instructions recorded. Reason for Referral None Reported. Problems Name Problem SNOMED Code Status Onset Date Resolution Date Notes Provider Name and Address Organization Details Recorded Time Hypertensive disorder 63857433 Active [facility] 11:59:40 Problem Notes None recorded. Medical Equipment None Reported. Allergies No known drug allergies Medications Name Sig Start Date Stop Date Status Note LastModified by Organization Details LastModified Time cyclobenz aprine 10 mg tablet TAKE 1 TABLET BY MOUTH THREE TIMES DAILY FOR 5 DAYS NEEDED FOR SPASM. DO NOT DRIVE OR DRINK ALCOHOL WHILE TAKING THIS MEDICATI ON 09/07 completed Not Available Not Available Not Available Carafate 100 mg/mL oral suspensio n TAKE 10 ML BY MOUTH FOUR TIMES DAILY BEFORE MEALS AND BEDTIME FOR 7 DAYS 09/07 completed Not Available Not Available Not Available Aplisol 5 tub. unit/0.1 mL intraderm al injection solution Inject 0.1 mL by intrader mal route. 2023 active Billable units for PPD is one. Units are not the dose. Not Available Not Available Not Available lisinopri l 10 mg tablet TAKE 1 TABLET BY MOUTH DAILY active Not Available Not Available No t Available methylpre dnisolone 4 mg tablets in a dose pack FOLLOW PACKAGE DIRECTIO NS 09/07 completed Not Available Not Available Not Available ondansetr on 4 mg disintegr ating tablet DISSOLVE 1 TABLET ON THE TONGUE EVERY 8 HOURS FOR 7 DAYS NEEDED FOR NAUSEA OR VOMITING 09/07 completed Not Available Not Available Not Available sertralin e 50 mg tablet TAKE 1/2 A TABLET FOR 1 WEEK THEN PROGRESS TO A FULL TABLET EVERY DAY 09/07 completed Not Available Not Available Not Available naproxen 500 mg tablet TAKE 1 TABLET BY MOUTH TWICE DAILY FOR 14 DAYS WITH FOOD 09/07 completed Not Available Not Available Not Available buprenorp nicolle 4 mg-naloxo ne 1 mg sublingua l film DISSOLVE 1 FILM BETWEEN GUM AND CHEEK TWICE DAILY 09/07 completed Not Available Not Available Not Available Vitals Date Recorded Body height Body mass index (BMI) Body weight Body temperature Heart rate Oxygen saturation Oxygen saturation in Arterial blood by Pulse oximetry Systolic blood pressure Diastolic blood pressure Provider Name and Address Organization Details Last Updated DateTime 4 157.48 cm 23.2 kg/m2 03419.2 3 g 99.3 [degF] 98 /min 98 % 98 % 145 mm[Hg] 79 mm[Hg] Joana Hand PA - [facility] 4 11:52:17 Social History Question Answer Notes LastModified by Organizat ion Details LastModified Time What Is Your Level Of Alcohol Consumption? Occasional Information not available 09/07/2024 How Many Times Per Week Do You Consume Alcohol? Less Than 1 Time Per Week Information not available 09/07/2024 Are You Currently Employed? Yes Information not available 09/07/2024 Do You Or Have You Ever Used E-cigarettes Or Vape? Never Used Electronic Cigarettes Information not available 09/07/2024 Have You Had A Flu Shot This Season? No Information not available 09/07/2024 If No, Would You Like A Flu Shot Today? A/P Information not available 09/07/2024 What Is Your Relationship Status? Information not available 09/07/2024 Are You Passively Exposed To Smoke? No Information no t available 09/07/2024 Do You Or Have You Ever Used Smokeless Tobacco? Never Used Smokeless Tobacco Information not available 09/07/2024 Do You Use Any Illicit Or Recreational Drugs? No Information not available 09/07/2024 Have You Recently Traveled Abroad? No Information not available 09/07/2024 Do You Or Have You Ever Used Any Other Forms Of Tobacco Or Nicotine? Yes Information not available 09/07/2024 Sex: Unknown Functional Status None recorded. Mental Status None recorded. Family History Nothing Reported. Medical History Condition Response Gout N Cancer, liver N Thyroid disorder N Hyperthyroidism N Rheumatoid arthritis N GI bleeding N Irritable bowel syndrome N Depression N COPD N Tinnitus, unspecified ear N Pneumonia N Cancer, uterus N Mental disorder, NOS N Headaches/Migraines N Insomia N Alzheimer's disease N Anxiety Disorder N Obesity N Arthritis N Cancer N Stroke N Alcohol abuse N Liver disease N Cancer, bladder N Allergy Food/Medication N Peripheral artery disease N Oxygen dependence N Fibromyalgia N Atrial fibrillation N Tinnitus, right ear N Kidney Disease N Deep vein thrombosis DVT leg N Migraine N Disorder of circulatory system N Anxiety N Cancer, brain N Disease of pancreas N Cancer, lung N Eating disorder, unspecified N Cancer, colon N Crohn's disease N Cancer, cervical N N Cancer, breast N Cancer, skin N Coagulation defect, unspecified N Cataract N Asthma N Congestive heart failure (CHF) N Substance Abuse N Vertigo N Coronary artery disease N Pulmonary Embolism N Cancer, pancreas N Tobacco use disorder N Disease of lung N Allergic rhinitis N Joint disorder, unspecified N Menopause N Drug dependence, unspecified N Back disorder N Hypothyroidism N Disorder kidney N Sickle Cell Anemia N Cancer, ovarian N Cerrato's Palsy N Disorder of eye N Cancer, prostate N Allergy Seasonal N Drug abuse N Disorder of urinary system N Disorder of lymph system N Radiculopathy, site unspecified N Myoneural disorder, unspecified N Nervous system disorder N ADHD N High Cholesterol N Post-herpetic neuralgia N Aneurysm, cerebral N Tinnitus, left ear N Prostate hypertrophy, benign N Disorder of skin/subcutaneous N Osteoarthritis N Disorder of ear N Ovarian cysts N Parkinson's disease N Low back pain N Carpal tunnel syndrome N Disorder of muscle N Anemia N Kidney stone N Bipolar affective disorder N Leukemia, unspecified N Diabetes N Endocrine disorder N Disorder involving the immune mechanism N Seizure N Hyperlipidemia N Lymphoma N Emphysema, unspecified N Eczema N Diverticulitis N Dementia N Lupus N Seizure disorder N Reflux/GERD N Sleep Apnea N Cancer, bone N Disorder of thyroid N Cardiac arrhythmia, unspecified N Disorder of bone N Heart Disease N Liver Disorder N Disorder of brain N Hypertension Y Aneurysm, aortic N Osteoporosis N Gastroesophageal reflux (GERD) N Disease of digestive system, unspecified N Gynecological HistoryNo gynecological history recorded. Obstetrics History GPAL:G 0 P 0 0 0 0 Past Encounters Encounter ID Performer Location Encounter Start Date Encounter Closed Date Diagnosis/Indication Diagnosis SNOMED-CT Code Diagnosis ICD10 Code Diagnosis Note [id number] [address] [facility] [address] 07/13/2019 18:07:23 07/13/2019 18:32:27 [id number] [address] [facility] [address] 06/21/2019 11:32:46 06/21/2019 12:40:44 [id number] CHELSIE MENENDEZ NP [address] [facility] [address] [address] 09/07/2024 10:47:44 09/07/2024 12:25:20 Tuberculosis screening 240275161 Z11.1 Physical examination 588 0005 Z04.9 Health Concerns Section Related Observation LastModified by Organization Detai ls LastModified Time None Recorded Concern Status LastModified by Organization Details LastModified Time None Recorded Advance Directives Directive None Recorded Payers Encounter Date Sequence Insurance Name Policy Number Policy Georges Covered Member ID Georges Member ID Guarantor Name 09/07/2024 1 *SELF PAY* Me sofia Wang OBGyn Episode No OBEpisode recorded.
--- OUTSIDE RECORDS SUMMARY | 2025-02-06 18:36 | XMS_ITS | Clinical Summary ---
Author Organization [employer] Address [address] [facility] [address] [place] [address] Care Team Providers Care Ecclesiastical Worker Name Role Phone Unavailable Primary Care Provider [...]
== END ==
LOC: HO.HCC 16:03
PROVIDERS: Visit Provider Internal Medicine
DX: F10.20 Alcohol dependence, uncomplicated (principal); F11.90 Opioid use, unspecified, uncomplicated; Z51.81 Encounter for therapeutic drug level monitoring
CPT/HCPCS: 99213

== ENCOUNTER 2025-03-17 14:54 | Outpatient (AMB) | payer OTHER, SELFPAY ==
--- OUTSIDE RECORDS SUMMARY | 2025-03-17 14:57 | XMS_ITS | Data Portability ---
Author Organization [facility] [address] Address [address] [place] [address] Assessment No assessment recorded. Plan of Treatment Reminders Order Date Submit Date Provider Last Modified By Organization Details Last Modified Time Details Appointments None recorded. Lab None recorded. Referral None recorded. Procedures None recorded. Surgeries None recorded. Imaging None recorded. Medication Orders Aplisol 5 tub. unit/0.1 mL intradermal injection solution 2023 [facility] kadeem [facility]/Pharmacy #[id number], [address] [place], [address], 4 12:22:38 Patient TargetsNo targets recorded. Patient InstructionsNo instructions recorded. Reason for Referral None Reported. Problems Name Problem SNOMED Code Status Onset Date Resolution Date Notes Provider Name and Address Organization Details Recorded Time Hypertensive disorder 20465648 Active [facility] 11:59:40 Problem Notes [...] Updated DateTime 4 157.48 cm 23.2 kg/m2 58691.2 3 g 99.3 [degF] 98 /min 98 % 98 % 145 mm[Hg] 79 mm[Hg] Joana Hand PA - [facility] 4 11:52:17 Social History Question Answer Notes LastModified by Organizat ion Details LastModified Time Have You Had A Flu Shot This Season? No Information no t available 09/07/2024 If No, Would You Like A Flu Shot Today? A/P Information not available 09/07/2024 What Is Your Relationship Status? Information not available 09/07/2024 Are You Passively Exposed To Smoke? No Information no t available 09/07/2024 Have You Recently Traveled Abroad? No Information not available 09/07/2024 Sex: Unknown Functional Status Question Answer Note LastModified by Organizat ion Details LastModified Time How many times per week do you consume alcohol? Less than 1 time per week Information not available 09/07/2024 Do you use any illicit or recreational drugs? No Information not available 09/07/2024 Do you or have you ever used any other forms of tobacco or nicotine? Yes Information not available 09/07/2024 What is your level of alcohol consumption? Occasional Information not available 09/07/2024 Do you or have you ever used smokeless tobacco? Never used smokeless tobacco Information not available 09/07/2024 Are you currently employed? Yes Information not available 09/07/2024 Do you or have you ever used e-cigarettes or vape? Never used electronic cigarettes Information not available 09/07/2024 Mental Status None recorded. Family History Nothing [...] SNOMED-CT Code Diagnosis ICD10 Code Diagnosis Note [id number] [facility] [address] [address] 07/13/2019 18:07:23 07/13/2019 18:32:27 [id number] 2099[facility] [address] [address] 06/21/2019 11:32:46 06/21/2019 12:40:44 [id number] [facility] [address] [address] 09/07/2024 10:47:44 09/07/2024 12:25:20 Tuberculosis screening 846642730 Z11.1 Physical examination 588 0005 Z04.9 Health Concerns Section Related Observation LastModified by Organization Detai ls LastModified Time None Recorded Concern Status LastModified by Organization Details LastModified Time None Recorded Advance Directives Directive None Recorded Payers Insurance Date Sequence Insurance Name Policy Number Policy Georges Covered Member ID Georges Member ID Guarantor Name 09/09/2024 2 [place] [facility] Tania Wang [id number] Tania Wang 09/09/2024 1 *SELF PAY* [place] sof[place] Wang 11/01/2024 1 [facility] (MEDICAID REPLACEMENT - O) [id number] Tania Wang [id number] Tania Wang OBGyn Episode No OBEpisode recorded.
--- OUTSIDE RECORDS SUMMARY | 2025-03-17 14:57 | XMS_ITS | Clinical Summary ---
Author Organization [employer] Address [address] [facility] [address] [place] [address] Care Team Providers Care Ordnance Mechanic Name Role Phone Unavailable Primary Care Provider [...] patient's age to complete this topic Meningococcal B Vaccine Aged Out No l onger eligible based on patient's age to complete [...]
--- NOTE | 2025-03-17 14:58 | MHC.OFFVIS ---
Vital Signs 03/17/25 15:01 Height 5 ft 2 in Pulse 117 H Pulse Source Pulse Oximeter Pulse Oximetry (%) 92 Intake Visit Reasons: MAT visit Allergies No Known Allergies Allergy (Verified 03/17/25 15:01) HPI HPI MAT visit: Details: She is doing well She has no cravings or complaints HPI Comments Details: She feels weak and thought it was due to too much Suboxone She is showing signs of withdrawal. She didnt recheck Hepatitis C yet. Review of Systems Const All systems reviewed & are unremarkable except as noted in HPI and below Physical Exam Vital Signs: Last Vital Signs Pulse 117 H 03/17/25 15:01 Pulse Ox 92 03/17/25 15:01 Const General: cooperative Assessment & Plan Assessment & Plan (1) Alcohol use disorder, moderate, dependence: Comment: She is feeling well. Code(s): F10.20 - Alcohol dependence, uncomplicated Category: Medical Plan: Continue same dose. See as scheduled. (2) Opioid use disorder: Code(s): F11.90 - Opioid use, unspecified, uncomplicated Category: Medical Plan: na Medications: New buprenorphine-naloxone 8-2 mg (Suboxone) 1 film sublingual DAILY 30 ea 0RF 30 days Coding Level of Care Code Est Pt Level 3 (46742) Diagnoses Alcohol use disorder, moderate, dependence F10.20 Opioid use disorder F11.90
[2025-03-17 15:01] VITALS: PULSE 117; O2SAT 92
== END 2025-03-17 15:20 | disposition home or self-care (01) ==
LOC: HO.HCC 14:55
PROVIDERS: Visit Provider Internal Medicine
DX: F10.20 Alcohol dependence, uncomplicated (principal); F11.90 Opioid use, unspecified, uncomplicated
CPT/HCPCS: 99213

== ENCOUNTER → 2025-03-17 14:54 | Outpatient (BNVA) | payer OTHER, SELFPAY | PROVIDERS: Visit Provider Internal Medicine | DX: F10.20 Alcohol dependence, uncomplicated (principal); F11.20 Opioid dependence, uncomplicated | CPT/HCPCS: 99212 ==

== ENCOUNTER 2025-05-12 09:53 | Outpatient (AMB) | payer OTHER, SELFPAY ==
--- NOTE | 2025-05-12 09:53 | MHC.OFFVIS ---
Vital Signs 05/12/25 09:55 Height 5 ft 2 in Weight 101 lb BMI 18.5 Pulse 101 H Pulse Source Pulse Oximeter Pulse Oximetry (%) 98 Oxygen Delivery Method Room Air Intake Visit Reasons: MAT Allergies No Known Allergies Allergy (Verified 05/12/25 09:53) HPI HPI MAT: Details: She did run out of medication as she missed her appointment. She feels taking one 8/2 daily works well for her. She does feel tired and has appointment pending with PCP. Hepatitis C is pending viral load. Review of Systems Const All systems reviewed & are unremarkable except as noted in HPI and below Physical Exam Vital Signs: Last Vital Signs Pulse 101 H 05/12/25 09:55 Pulse Ox 98 05/12/25 09:55 Oxygen Delivery Method Room Air 05/12/25 09:55 BMI result Body Mass Index 18.5 Const General: cooperative Assessment & Plan Assessment & Plan (1) Alcohol use disorder, moderate, dependence: Comment: She is feeling well. Code(s): F10.20 - Alcohol dependence, uncomplicated Category: Medical (2) Opioid use disorder: Comment: She is doing well on 8/2 dose daily. Would refill that and see in three weeks see if dose appropriate and continue or adjust as needed. Code(s): F11.90 - Opioid use, unspecified, uncomplicated Category: Medical Plan: na Plan na Medications: New buprenorphine-naloxone 8-2 mg (Suboxone) 1 film sublingual DAILY 21 ea 0RF 21 days Coding Level of Care Code Est Pt Level 3 (09732) Diagnoses Alcohol use disorder, moderate, dependence F10.20 Opioid use disorder F11.90
[2025-05-12 09:55] VITALS: PULSE 101; O2SAT 98; BMI 18.5
--- OUTSIDE RECORDS SUMMARY | 2025-05-12 10:17 | XMS_ITS | Clinical Summary ---
Author Organization [employer] Address [address] [facility] [address] [place] [address] Care Team Providers Care Rotary Furnace Tender Name Role Phone Unavailable Primary Care Provider [...] 1969 FIT 1969 FOBT 1969 Sigmoidoscopy 1969 Disability Screening 1969 Alcohol/Substance Use Screening 1981 Tobacco Screening 1981 DTaP/Tdap/Td Vaccines (1 - Tdap) 1988 Hepatitis B Vaccines (1 of 3 - 19+ 3-dose series) 1988 Pap Smear 1990 Cervical Cancer Screening 1999 HPV/Cotest 1999 Mammogram 2009 Pneumococcal Vaccine: 50+ Ye ars (1 of 1 - PCV) 2019 Zoster Vaccines (1 of 2) 2019 COVID-19 Vaccine ( - 2023-2 5 season) 2024 Influenza Vaccine (#1) 2025 RSV Patients and Pa tients Aged 60 [...]
--- OUTSIDE RECORDS SUMMARY | 2025-05-12 10:18 | XMS_ITS | Data Portability ---
Author Organization [facility] [address] Address [address] [place] [address] Assessment No assessment recorded. Plan of Treatment Reminders Order Date Submit Date Provider Last Modified By Organization Details Last Modified Time Details Appointments None recorded. Lab None recorded. Referral None recorded. Procedures None recorded. Surgeries None recorded. Imaging None recorded. Medication Orders Aplisol 5 tub. unit/0.1 mL intradermal injection solution 2023 [id number] [address] [place], [address], 4 12:22:38 Patient TargetsNo targets recorded. Patient InstructionsNo instructions recorded. Reason for Referral None Reported. Problems Name Problem SNOMED Code Status Onset Date Resolution Date Notes Provider Name and Address Organization Details Recorded Time Hypertensive disorder 61893200 Active [facility] 4 11:59:40 Problem Notes None recorded. Medical Equipment [...] in Arterial blood by Pulse oximetry Systolic And Diastolic Provider Name and Address Organization Details Last Updated DateTime 4 157.48 cm 23.2 kg/m2 13578.2 3 g 99.3 [degF] 98 /min 98 % 98 % 145/79 mm[Hg] Joana Hand PA - [facility] 4 11:52:17 Social History Question Answer Notes LastModified by [facility] ion Details LastModified Time Have You Had [...] Functional Status Question Answer Note LastModified by [employer] ion Details LastModified Time How many times [...] SNOMED-CT Code Diagnosis ICD10 Code Diagnosis Note [id number] [facility] [address] [address] 07/13/2019 18:07:23 07/13/2019 18:32:[id number] [place] [address] [address] [address] 06/21/2019 11:32:46 06/21/2019 12:40:44 [id number] [facility] SIM [address] [address] 09/07/2024 10:47:44 09/07/2024 12:25:20 Tuberculosis screening 790741702 Z11.1 Physical examination 588 0005 Z04.9 Health Concerns Section Related Observation LastModified by Organization Detai ls LastModified Time None Recorded Concern Status LastModified by Organization Details LastModified Time None Recorded Advance Directives Directive None Recorded Payers Insurance Date Sequence Insurance Name Policy Number Policy Georges Covered Member ID Georges Member ID Guarantor Name 09/09/2024 2 [place] [facility] Tania Wang [id number] Tania Wang 09/09/2024 1 *SELF PAY* [place] sofia Wang 11/01/2024 1 [facility] (MEDICAID REPLACEMENT - O) [id number] Tania Wang [id number] Tania Wang OBGyn Episode No OBEpisode recorded.
== END 2025-05-12 10:15 | disposition home or self-care (01) ==
LOC: HO.HCC 09:53
PROVIDERS: Visit Provider Internal Medicine
DX: F10.20 Alcohol dependence, uncomplicated (principal); F11.90 Opioid use, unspecified, uncomplicated
CPT/HCPCS: 99213

== ENCOUNTER → 2025-05-12 09:53 | Outpatient (BNVA) | payer OTHER, SELFPAY | PROVIDERS: Visit Provider Internal Medicine | DX: F10.20 Alcohol dependence, uncomplicated (principal); F11.90 Opioid use, unspecified, uncomplicated | CPT/HCPCS: 99212 ==

== ENCOUNTER 2025-06-09 11:32 | Outpatient (AMB) | payer OTHER, SELFPAY ==
--- OUTSIDE RECORDS SUMMARY | 2025-06-09 11:35 | XMS_ITS | Clinical Summary ---
Author Organization [employer] Address [address] [facility] [address] [place] [address] Care Team Providers Care Homeowner Association Manager Name Role Phone Unavailable Primary Care Provider [...]
[2025-06-09 11:37] VITALS: BP 130/80; PULSE 80; O2SAT 98; BMI 22.7
--- NOTE | 2025-06-09 11:37 | MHC.OFFVIS ---
Vital Signs 06/09/25 11:37 Height 5 ft 2 in Weight 124 lb BMI 22.7 BP 130/80 Pulse 80 Pulse Oximetry (%) 98 Intake Visit Reasons: Mat Allergies No Known Allergies Allergy (Verified 06/09/25 11:39) Coding
--- NOTE | 2025-06-09 11:42 | MHC.OFFVIS ---
Vital Signs 06/09/25 11:37 Height 5 ft 2 in Weight 124 lb BMI 22.7 BP 130/80 Pulse 80 Pulse Oximetry (%) 98 Intake Visit Reasons: Mat Allergies No Known Allergies Allergy (Verified 06/09/25 11:39) HPI HPI Mat: Details: She is doing well. She has no complaints Review of Systems Const All systems reviewed & are unremarkable except as noted in HPI and below Physical Exam Vital Signs: Last Vital Signs Pulse 80 06/09/25 11:37 BP 130/80 06/09/25 11:37 Pulse Ox 98 06/09/25 11:37 BMI result Body Mass Index 22.7 Assessment & Plan Assessment & Plan (1) Opioid use disorder: Comment: She is doing well on 8/2 dose daily. Would continue See as scheduled. Code(s): F11.90 - Opioid use, unspecified, uncomplicated Category: Medical (2) Alcohol use disorder, moderate, dependence: Comment: She is feeling well. Code(s): F10.20 - Alcohol dependence, uncomplicated Category: Medical Plan: na Plan na Medications: New buprenorphine-naloxone 8-2 mg (Suboxone) 1 film sublingual DAILY 30 ea 0RF 30 days Coding Level of Care Code Est Pt Level 3 (48338) Diagnoses Opioid use disorder F11.90 Alcohol use disorder, moderate, dependence F10.20
== END 2025-06-09 12:58 | disposition home or self-care (01) ==
PROVIDERS: Visit Provider Internal Medicine
DX: F11.90 Opioid use, unspecified, uncomplicated (principal); F10.20 Alcohol dependence, uncomplicated
CPT/HCPCS: 99213

== ENCOUNTER → 2025-06-09 11:32 | Outpatient (BNVA) | payer OTHER, SELFPAY | PROVIDERS: Visit Provider Internal Medicine | DX: F10.20 Alcohol dependence, uncomplicated (principal); F11.90 Opioid use, unspecified, uncomplicated | CPT/HCPCS: 99212 ==

== ENCOUNTER 2025-07-13 10:49 | Outpatient (AMB) | payer OTHER, SELFPAY ==
--- NOTE | 2025-07-13 10:55 | MHC.OFFVIS ---
Vital Signs 07/13/25 10:56 Height 5 ft 2 in Weight 123 lb BMI 22.5 BP 138/78 Pulse 90 Pulse Oximetry (%) 96 Intake Visit Reasons: MAT Allergies No Known Allergies Allergy (Verified 06/09/25 11:39) Medication List - Last Reconciled 07/13/25 by ANGELIC Escobar buprenorphine-naloxone 8-2 mg (Suboxone) 1 film sublingual DAILY 30 days docusate sodium 100 mg PO DAILY PRN folic acid 1 mg PO DAILY ibuprofen 600 mg PO Q6H PRN lisinopril 10 mg PO DAILY naloxone 4 mg/actuation (Narcan) 4 mg intranasal Q2M PRN sertraline 50 mg PO DAILY thiamine HCl (vitamin B1) 100 mg PO DAILY HPI Comments Details: A 54-year-old female presents for a follow-up visit for MICHELLE in sustained remission with buprenorphine-naloxone 8/2 mg daily. Denies use of opiates, and other substances. Reports intermittent use of alcohol. Daily cigarette smoking and intermittent use of CBD gummies. 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 Review of Systems Const All systems reviewed & are unremarkable except as noted in HPI and below Physical Exam Vital Signs: Last Vital Signs Pulse 90 07/13/25 10:56 BP 138/78 07/13/25 10:56 Pulse Ox 96 07/13/25 10:56 BMI result Body Mass Index 22.5 Const General: cooperative Assessment & Plan Assessment & Plan (1) Opioid use disorder in remission: Code(s): F11.91 - Opioid use, unspecified, in remission Category: Medical Plan The plan of care is to continue with buprenorphine-naloxone 8/2 mg daily and follow up in 1 month or sooner if needed. Medications: Refilled buprenorphine-naloxone 8-2 mg (Suboxone) 1 film sublingual DAILY 30 ea 0RF 30 days Patient Instructions: - Continue with buprenorphine-naloxone as prescribed. - Follow-up in 1 month or sooner if needed. - Call with questions, concerns, or to report side effects/new onset of symptoms to [facility]. - The patient verbalized understanding and agreed with plan of care. Coding Level of Care Code Est Pt Level 3 (10606) Diagnoses Opioid use disorder in remission F11.91
[2025-07-13 10:56] VITALS: BP 138/78; PULSE 90; O2SAT 96; BMI 22.5
--- OUTSIDE RECORDS SUMMARY | 2025-07-13 14:44 | XMS_ITS | Encounter Summary ---
Author Organization [facility] Address [address] [address] Phone Care Team Providers Care Welding Setter Name Role Phone Austyn Payne MD Unavailable Katherine Aguilar LINUX SYSTEMS ADMINISTRATOR Unavailable [phone] Kenyatta Winn LINUX SYSTEMS ADMINISTRATOR Unavailable [phone] Sammy Alegria MD Unavailable Unavailable Naren Valenzuela MD Unavailable [phone]CS Unavailable [email or web address] Peace Nettles MD Unavailable [phone] Mona Rodriguez MD Primary Care Provider + Encounter Details Date Type Department Care Team (Late st Contact Info) Description 09/09/2019 Ancillary Orders [facility] [address] [place] [address] Kenyatta Graham CNM 22 [facility] [address] [place] [address] Social History Tobacco Use Types Packs/Day Years Used Date Smoking Tobacco: Every Day Smokeless Tobacco: Never Alcohol Use Standard Drinks/Week Comments Yes 0 (1 standard drink = 0.6 oz pur e alcohol) rare Comments No Sex and Gender Information Value Date Recorded Sex Assigned at Not on file Legal Sex Female 9:36 PM EDT Gender Identity Not on file Sexual Orientation Not on file documented as of this encounter Plan of Treatment Not on file documented as of this encounter Visit Diagnoses Not on filedocumented in this encounter Care Teams Welding Setter Relationship Specialty Start Date End Date Mona Rodriguez MD [address] [place] [address] Sports [facility], [place] [address] [email or web address] PCP - General Family Medicine 09/09/19 Austyn Payne MD [address] [place] [address] Historical LMR Provider 08/19/17 11/09/21 Katherine Aguilar LINUX SYSTEMS ADMINISTRATOR [address] [place] [phone] Historical LMR Provider 08/19/17 2 Kenyatta Winn NP [address] [place] [address] Historical LMR Provider 08/19/17 2 Sammy Alegria MD Historical LMR Provider 08/19/17 11/09/21 Naren Valenzuela MD [address] [place] [address] Historical LMR Provider 08/19/17 Romy Lopez RDCS Historical LMR Provider 08/19/17 11/09/21 Peace Nettles MD [address] [place] [address] Orthopedics Sports [facility], [place] [address] Historical LMR Provider 08/19/17 documented as of this encounter Additional Source Comments The information contained in this document represents components of the legal health record. It is not the complete legal health record.[facility]
--- OUTSIDE RECORDS SUMMARY | 2025-07-13 14:44 | XMS_ITS | Clinical Summary ---
Author Organization [employer] Address 75 [facility] 7t [place] [address] Care Team Providers Care Care Connector Name Role Phone Unavailable Primary Care Provider [...] COVID-19 Vaccine ( - 2023-2 5 season) 2025 Influenza Vaccine (#1) 2025 RSV Patients and [...]
--- OUTSIDE RECORDS SUMMARY | 2025-07-13 14:44 | XMS_ITS | Encounter Summary ---
Author Organization [facility] Address [address] [place] [address] [place] [address] Phone Care Team Providers Care Associate Trainer Name Role Phone Austyn Payne MD Unavailable Katherine Aguilar HARBOR TUG CAPTAIN Unavailable [phone] Kenyatta Winn HARBOR TUG CAPTAIN Unavailable [phone] Sammy Alegria MD Unavailable Unavailable Naren Valenzuela MD Unavailable [phone]CS Unavailable [email or web address] Peace Nettles MD Unavailable [phone] Mona Rodriguez MD Primary Care Provider + Encounter Details Date Type Department Care Team (Late st Contact Info) Description 09/09/2019 Ancillary Orders Virtual Department [address] [place] [address] Mona Rodriguez MD [address] [place] [address] [email or web address] Breast screening Social History Tobacco Use Types Packs/Day Years [...] documented as of this encounter Visit Diagnoses Diagnosis Breast screening Breast screening, unspecified documented in this encounter Care Teams Associate Trainer Relationship Specialty Start Date End Date Mona Rodriguez MD [address] [place] [address], [place] [address] [email or web address] PCP - General Family Medicine 09/09/19 Austyn Payne MD [address] [place] [address] Historical LMR Provider 08/19/17 11/09/21 Katherine Aguilar HARBOR TUG CAPTAIN [address] [place] [phone] Historical LMR Provider 08/19/17 2 Kenyatta Winn NP [address] [place] [address] Historical LMR Provider 08/19/17 2 Sammy Alegria MD Historical LMR Provider 08/19/17 11/09/21 Naren Valenzuela MD [address] [place] [address] Historical LMR Provider 08/19/17 Romy Lopez, RDCS Historical LMR Provider 08/19/17 11/09/21 Peace Nettles MD [address] [place] [address] [facility] [place] [place] Sports [facility], [place] [address] Historical LMR Provider 08/19/17 documented as of this encounter Additional Source Comments The information contained in this document represents components of the legal health record. It is not the complete legal health record.[facility]
--- OUTSIDE RECORDS SUMMARY | 2025-07-13 14:44 | XMS_ITS | Clinical Summary ---
Author Organization [facility] Address 399 [facility] [address] [place] [address] Phone Care Team Providers Care Solar Sales Advisor Name Role Phone Naren Valenzuela MD Unavailable [phone] Mona Rodriguez MD Primary Care Provider + Allergies No known active allergies Medications lisinopril (PRINIVIL,ZESTRI L) 5 MG tablet Orally Activ e ALPRAZolam (XANAX) 0.25 MG tablet Orally Active ibuprofen (ADVIL,MOTRIN) 800 MG tablet Take 1 tablet by mouth every 8 (eight) hours as needed. 09/15/2013 Active LEVONORGESTREL (MIRENA UTRN) Active aspirin 81 MG EC tablet Take 81 mg by mouth daily. Active Immunizations Immunization Administration Dates Next Due INFLUENZA, SPLIT VIRUS, TRIVALENT PF 09/20/2015 Tdap 12/28/2012 Family History Medical History Relation Comments Multiple sclerosis Father Lung cancer Maternal Aunt Bone cancer Maternal Grandfather Brain tumor Maternal Grandmother Diabetes mellitus Maternal Grandmother Stroke Maternal Grandmother Depression Mother Leukemia Paternal Grandmother Relation Status Comments Father Maternal Aunt Maternal Grandfather Maternal Grandmother Mother Paternal Grandmother Social History Tobacco Use Types Packs/Day Years Used Date Smoking Tobacco: Every Day Smokeless Tobacco: Never Alcohol Use Standard Drinks/Week Comments Yes 0 (1 standard drink = 0.6 oz pur e alcohol) rare Education Answer Date Recorded Are you interested in more education? Not on kalpesh e 02/27/2023 Are you concerned about learning? Not on file 02/27/2023 No 02/27/2023 No 02/27/2023 Digital Access Answer Date Recorded No 03/28/2023 No 03/28/2023 Reliable internet access at home? Not on file 03/28/2023 Device with a working camera? Not on file Comments No Sex and Gender Information Value Date Recorded Sex Assigned at Not on file Legal Sex Female 9:36 PM EDT Gender Identity Not on file Sexual Orientation Not on file Last Filed Vital Signs Vital Sign Reading Time Taken Comments Blood Pressure 122/70 06/23/2019 9:36 AM EDT Pulse - - Temperature - - Respiratory Rate - - Oxygen Saturation - - Inhaled Oxygen Concentration - - Weight 64.1 kg (141 lb 6.4 oz) 06/23/2019 9:36 A M EDT Height 157.5 cm (5' 2 ) 06/30/2018 9:25 AM EDT Body Mass Index 25.86 06/30/2018 9:25 AM EDT Plan of Treatment Health Maintenance Due Date Last Done Comments CREATININE LEVEL 1969 LIPID PANEL 1969 POTASSIUM LEVEL 1969 DEPRESSION SCREENING 1981 SMOKING Hx and SMOKELESS TOBACCO SCREENING 1982 HEPATITIS C SCREENING 1987 HIV ONE-TIME SCREENING (18-6 5 YEARS) 1987 PNEUMOCOCCAL VACCINES (50+ years) (1 of 2 - PCV) 1988 COLOGUARD 2014 COLONOSCOPY 2014 COLORECTAL CANCER SCREENING 2014 FIT TEST 2014 FOBT 2014 SIGMOIDOSCOPY 2014 VIRTUAL COLONOSCOPY 2014 MAMMOGRAM 04/02/2017 04/02/2016 PAP SMEAR 06/22/2019 ZOSTER VACCINES (1 of 2) 2019 Adult Td,Tdap Booster 12/28/2022 12/28/2012 INFLUENZA VACCINE (#1) 2025 09/20/2015 COVID-19 VACCINE (3 2024-2 6 season) 2025 11/28/2020, 11/07/2020 HEPATITIS A VACCINES Aged Out No long er eligible based on patient's age to complete this topic HIB VACCINES Aged Out No longer eligi ble based on patient's age to complete this topic MENINGOCOCCAL VACCINES (ACWY) Aged Out No longer eligible based on patient's age to complete this topic MENINGOCOCCAL VACCINES (B) Aged Out N o longer eligible based on patient's age to complete this topic Medical Devices Not on file Procedures Procedure Name Priority Date/Time Associated Diagnosis Comments MAMMOGRAPHY Routine 04/02/2016 from Last 3 Months or Most Recently Relevant to Health Maintenance Results * MAMMOGRAPHY FOR RESULT ENTRY ONLY (04/02/2016) Mammogram normal Historical Provider MD HEALTH MAINTENANCE Final Result from Last 3 Months or Most Recently Relevant to Health Maintenance [facility]io [facility] HEALTH TOGETHER MCO TOGETHER MCO TOGETHER MCO TOGETHER M[employer] TOGETHER [employer] TOGETHER MCO Care Teams Solar Sales Advisor Relationship Specialty Start Date End Date Mona Rodriguez MD [address] [place] [address], [address] [address] [email or web address] PCP - General Family Medicine 09/09/19 Naren Valenzuela MD [address] [place] [address], [address] [address] [email or web address] Historical LMR Provider 08/19/17 Additional Source Comments The information contained in this document represents components of the legal health record. It is not the complete legal health record.[facility]
== END 2025-07-13 11:12 | disposition home or self-care (01) ==
LOC: HO.HCC 10:51
PROVIDERS: Visit Provider Clinical Nurse Specialist Psychiatric/Mental Health
DX: F11.91 Opioid use, unspecified, in remission (principal)
CPT/HCPCS: 99213

== ENCOUNTER → 2025-07-13 10:49 | Outpatient (BNVA) | payer OTHER, SELFPAY | PROVIDERS: Visit Provider Clinical Nurse Specialist Psychiatric/Mental Health | DX: F11.21 Opioid dependence, in remission (principal); F10.90 Alcohol use, unspecified, uncomplicated; F17.210 Nicotine dependence, cigarettes, uncomplicated; Z79.899 Other long term (current) drug therapy | CPT/HCPCS: 99212 ==

== ENCOUNTER 2025-09-25 15:09 | Outpatient (AMB) | payer OTHER, SELFPAY ==
--- NOTE | 2025-09-25 15:09 | MHC.OFFVIS ---
Vital Signs 09/25/25 15:15 Height 5 ft 2 in Weight 119 lb BMI 21.8 Pulse 96 Pulse Source Pulse Oximeter Pulse Oximetry (%) 96 Oxygen Delivery Method Room Air Intake Visit Reasons: MAT Allergies No Known Allergies Allergy (Verified 09/25/25 15:15) HPI Comments Details: A 55-year-old female presents for a follow-up r/t MICHELLE in sustained remission with buprenorphine-naloxone 8-2 mg daily. Denies use of opiates, alcohol, and other substances. Acknowledges continuing to smoke half pack of cigarettes per day. 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 Review of Systems Const All systems reviewed & are unremarkable except as noted in HPI and below Physical Exam Vital Signs: Last Vital Signs Pulse 96 09/25/25 15:15 Pulse Ox 96 09/25/25 15:15 Oxygen Delivery Method Room Air 09/25/25 15:15 BMI result Body Mass Index 21.8 Const General: cooperative Assessment & Plan Assessment & Plan (1) Opioid use disorder in remission: Code(s): F11.91 - Opioid use, unspecified, in remission Category: Medical Plan The plan of care is to continue with buprenorphine-naloxone 8-2 mg daily. Risk reduction activities discussed to assist in minimizing frequency and quantity of cigarette smoking. Follow-up in 2 months or sooner if needed. Medications: Changed From buprenorphine-naloxone 8-2 mg (Suboxone) 1 film sublingual DAILY 30 days 30 ea 0RF To buprenorphine-naloxone 8-2 mg (Suboxone) One film sublingually daily 1 film sublingual DAILY 30 ea 1RF 30 days Patient Instructions: - Continue with buprenorphine-naloxone as prescribed. - Engage in risk reduction activities to minimize frequency and quantity of cigarette smoking. - Follow-up in 2 months or sooner if needed. - Call with questions, concerns, or to report side effects/new onset of symptoms to [facility]. - The patient verbalized understanding and agreed with plan of care. Coding Level of Care Code Est Pt Level 3 (28278) Diagnoses Opioid use disorder in remission F11.91
[2025-09-25 15:15] VITALS: PULSE 96; O2SAT 96; BMI 21.8
--- OUTSIDE RECORDS SUMMARY | 2025-09-25 19:54 | XMS_ITS | Clinical Summary ---
Author Organization [facility] Address 399 [facility] [address] [place] [address] Phone Care Team Providers Care Asic Verification Engineer Name Role Phone Naren Valenzuela MD Unavailable [phone] Mona Rodriguez MD Primary Care Provider [...] VACCINE (#1) 2025 09/20/2015 COVID-19 VACCINE (3 - 2024-2 6 season) 2025 11/28/2020, 11/07/2020 RSV VACCINE (1 - 1-dose 75+ series) 2044 HEPATITIS A VACCINES Aged Out No long [...] FOR RESULT ENTRY ONLY (04/02/2016) Mammogram normal us Historical Provider MD HEALTH MAINTENANCE Final Result from Last 3 Months or Most Recently Relevant to Health Maintenance Insurance [employer] [facility] HEALTH TOGETHER MCO TOGETHER MCO TOGETHER M[employer] TOGETHER [employer] TOGETHER [employer] TOGETHER MCO Care Teams Asic Verification Engineer Relationship Specialty Start Date End Date Mona Rodriguez MD [address] [place] [address], [address] [address] [email or web address] PCP - General Family Medicine 09/09/19 Naren Valenzuela MD [address] [place] [address], [address] [address] [email or web address] Historical LMR Provider 08/19/17 Additional Source Comments The information contained in this document represents components of the legal health record. It is not the complete legal health record.[facility]
--- OUTSIDE RECORDS SUMMARY | 2025-09-25 19:54 | XMS_ITS | Clinical Summary ---
Author Organization [employer] Address 75 [facility] 7t [place] [address] Care Team Providers Care Aircraft Inspector Name Role Phone Unavailable Primary Care Provider [...] of 2) 2019 COVID-19 Vaccine ( - 2024-2 6 season) 2025 Influenza Vaccine (#1) 2025 RSV [...]
--- OUTSIDE RECORDS SUMMARY | 2025-09-25 19:54 | XMS_ITS | Data Portability ---
Author Organization [facility] [address] Address [address] [place] [address] Assessment No assessment recorded. Plan of Treatment Reminders Order Date Submit Date Provider Last Modified By Organization Details Last Modified Time Details Appointments None recorded. Lab None recorded. Referral None recorded. Procedures None recorded. Surgeries None recorded. Imaging None recorded. Medication Orders Aplisol 5 tub. unit/0.1 mL intradermal injection solution 2023 [id number], [address] [place], [address], 4 12:22:38 Patient TargetsNo targets recorded. Patient InstructionsNo instructions recorded. Reason for Referral None Reported. Problems Name Problem SNOMED Code Status Onset Date Resolution Date Notes Provider Name and Address Organization Details Recorded Time Hypertensive disorder 74794206 Active [facility] 4 11:59:40 Problem [...] weight Body temperature Heart rate Oxygen saturation Systolic And Diastolic Provider Name and Address Organization Details Last Updated DateTime 4 157.48 cm 23.2 kg/m2 55359.2 3 g 99.3 [degF] 98 /min 98 % 145/79 mm[Hg] Joana Hand PA - [facility] 4 11:52:17 Social History Question Answer Notes LastModified by [employer] Details LastModified Time Have You Had A [...] Functional Status Question Answer Note LastModified by [employer] Details LastModified Time How many times per [...] GI bleeding N Irritable bowel syndrome N COPD N Depression N Pneumonia N Tinnitus, unspecified ear N Cancer, uterus N Mental disorder, NOS N Headaches/Migraines N Insomia N Alzheimer's disease N Anxiety Disorder N Obesity N Arthritis N Cancer N Stroke N Alcohol abuse N Liver disease N Allergy Food/Medication N Cancer, bladder N Peripheral artery disease N Atrial fibrillation N Fibromyalgia N Oxygen dependence N Tinnitus, right ear N Kidney Disease [...] N Joint disorder, unspecified N Menopause N Back disorder N Drug dependence, unspecified N Hypothyroidism N Disorder kidney N Sickle Cell Anemia N Cerrato's Palsy N Cancer, ovarian N Disorder of eye N Cancer, prostate N Allergy Seasonal N Disorder of lymph system N Disorder of urinary system N Drug abuse N Radiculopathy, site unspecified N Myoneural disorder, unspecified N Nervous system disorder N ADHD N High Cholesterol N Aneurysm, cerebral N Post-herpetic neuralgia N Disorder of skin/subcutaneous N Prostate hypertrophy, benign N Tinnitus, left ear N Osteoarthritis N Disorder of ear N Ovarian cysts N Parkinson's disease N Low back pain N Carpal tunnel syndrome N Anemia N Disorder of muscle N Kidney stone N Bipolar affective disorder [...] Diagnosis SNOMED-CT Code Diagnosis ICD10 Code Diagnosis IMO Codes Diagnosis Note [id number] [facility] [address] [address] 07/13/2019 18:07:23 07/13/2019 18:32:27 [id number] [facility] [address] [address] 06/21/2019 11:32:46 06/21/2019 12:40:44 [id number] [facility] [address] [address] 09/07/2024 10:47:44 09/07/2024 12:25:20 Tuberculosis screening [id number] Z11.1 Physical examination 588 0005 Z04.9 Health Concerns Section Related Observation LastModified by Organization Detai ls LastModified Time None Recorded Concern Status LastModified by Organization Details LastModified Time None Recorded Advance Directives Directive None Recorded Payers Insurance Date Sequence Insurance Name Policy Number Policy Georges Covered Member ID Georges Member ID Guarantor Name 09/09/2024 2 [place] [facility] Tania Wang [id number] Tania Wang 09/09/2024 1 *SELF PAY* Pa sofia Wang 11/01/2024 1 [facility] (MEDICAID REPLACEMENT - O) [id number] Tania Wang [id number] Tania Wang OBGyn Episode No OBEpisode recorded.
--- OUTSIDE RECORDS SUMMARY | 2025-09-25 19:55 | XMS_ITS | Encounter Summary ---
Author Organization [facility] Address [address] [place] [address] [place] [address] Phone Care Team Providers Care Short Story Writer Name Role Phone Austyn Payne MD Unavailable Katherine Aguilar CREW MEMBER Unavailable [phone] Kenyatta Winn CREW MEMBER Unavailable [phone] Sammy Alegria MD Unavailable Unavailable Naren Valenzuela MD Unavailable [phone]CS Unavailable [email or web address] Peace Nettles MD Unavailable [phone] Mona Rodriguez MD Primary Care Provider + Encounter Details Date Type Department Care Team (Late st Contact Info) Description 09/09/2019 Ancillary Orders Virtual Department [address] [place] [address] Mona Rodriguez MD [address] [place] [address] [email or web address] Breast screening Social History Tobacco Use Types [...] unspecified documented in this encounter Care Teams Short Story Writer Relationship Specialty Start Date End Date Mona Rodriguez MD [address] [place] [address], [place] [address] [email or web address] PCP - General Family Medicine 09/09/19 Austyn Payne MD [address] [place] [address] Historical LMR Provider 08/19/17 11/09/21 Katherine Aguilar CREW MEMBER [address] [place] [phone] Historical LMR Provider 08/19/17 2 Kenyatta Winn NP [address] [place] [address] Historical LMR Provider 08/19/17 2 Sammy Alegria MD Historical LMR Provider 08/19/17 11/09/21 Naren Valenzuela MD [address] [place] [address] Historical LMR Provider 08/19/17 Romy Lopez, RDCS Historical LMR Provider 08/19/17 11/09/21 Peace Nettles MD [address] [place] [address] [facility] Sports [facility], [place] [address] Historical LMR Provider 08/19/17 documented as of this encounter Additional Source Comments The information contained in this document represents components of the legal health record. It is not the complete legal health record.[facility]
--- OUTSIDE RECORDS SUMMARY | 2025-09-25 19:55 | XMS_ITS | Encounter Summary ---
Author Organization [facility] Address [address] [address] Phone Care Team Providers Care Registered Radiologic Technologist Name Role Phone Austyn Payne MD Unavailable Katherine Aguilar FINISHING MACHINE TENDER Unavailable [phone] Kenyatta Winn FINISHING MACHINE TENDER Unavailable [phone] Sammy Alegria MD Unavailable Unavailable Naren Valenzuela MD Unavailable [phone] [address] RDCS Unavailable [email or web address] Peace Nettles MD Unavailable [phone] Mona Rodriguez MD Primary Care Provider + Encounter Details Date Type Department Care Team (Late st Contact Info) Description 09/09/2019 Ancillary Orders Darlin Barragan [facility] [address] [place] [address] Kenaytta Graham CNM 22 [facility] [address] [place] [address] Social History Tobacco Use Types Packs/Day Years [...] on filedocumented in this encounter Care Teams Registered Radiologic Technologist Relationship Specialty Start Date End Date Mona Rodriguez MD [address] [place] [address] Sports [facility], [place] [address] [email or web address] PCP - General Family Medicine 09/09/19 Austyn Payne MD [address] [place] [address] Historical LMR Provider 08/19/17 11/09/21 Katherine Aguilar FINISHING MACHINE TENDER [address] [place] [phone] Historical LMR Provider 08/19/17 2 Kenyatta Winn NP [address] [place] [address] Historical LMR Provider 08/19/17 2 Sammy Alegria MD Historical LMR Provider 08/19/17 11/09/21 Naren Valenzuela MD [address] [place] [address] Historical LMR Provider 08/19/17 [address]omy Lopez RDCS Historical LMR Provider 08/19/17 11/09/21 Peace Nettles MD [address] [place] [address] Orthopedics Sports [facility], [place] [address] Historical LMR Provider 08/19/17 documented as of this encounter Additional Source Comments The information contained in this document represents components of the legal health record. It is not the complete legal health record.[facility]
== END 2025-09-25 15:46 | disposition home or self-care (01) ==
LOC: HO.HCC 15:09
PROVIDERS: Visit Provider Clinical Nurse Specialist Psychiatric/Mental Health
DX: F11.91 Opioid use, unspecified, in remission (principal)
CPT/HCPCS: 99213

== ENCOUNTER → 2025-09-25 15:09 | Outpatient (BNVA) | payer OTHER, SELFPAY | PROVIDERS: Visit Provider Clinical Nurse Specialist Psychiatric/Mental Health | DX: F11.91 Opioid use, unspecified, in remission (principal) | CPT/HCPCS: 99212 ==